=== PATIENT | female | born 1975 | race Caucasian/White ===

== ENCOUNTER 2018-09-18 20:08 | Inpatient (IN) ==
--- NOTE | 2018-09-18 16:32 | OB/GYN History & Physical ---
Date of Encounter: 09/18/18 Time of Encounter: 16:30 Assessment and Plan (1) False labor after 37 completed weeks of gestation Current visit: Yes Status: Acute 43yo at 38+3wks GA who presents with lower back discomfort, rule out labor 1. R/o labor - R&R NST - SVE: cl/th/hi, posterior - no contraction(S) on EFM, patient denies - MUS like discomfort associated with the LL flank - denies si/sx of UTI, no hematuria or dysuria - urine dip ordered and pending, if positive will rx 2. MWB - UTD PNC with Dr. Quiñonez - scheduled for repeat LTCS on 09/22 in [place] - complicated by AMA status - G1 NRFWB, G2 elective repeat CS 3. FWB - RNST for GA - reports good FM - posterior fundal placenta - subjectively normal JAZMYNE Dispo: Discomfort improved without any intervention other than time. MUS in origin given examination. Ruled out for LABOR, no CTX and patient with R&R NST for GA. Patient to f/u with Dr. Quiñonez on Sunday for scheduled CS. Given precaution(s). MD URBAN History of Present Illness Chief complaint: LLQ pain HPI: Ms. Reyna is a 43 year old female at 38+3wks GA with 2 prior LTCS presenting with c/o sudden onset left lower flank pain that radiates to the R groin. The patient is otherwise UTD, sees Dr. Quiñonez for PNC for which she is UTD and otherwise uncomplicated aside from AMA status. She is scheduled for rLTCS at term on Saturday 09/22. Denies caren contraction(S), vaginal bleeding, leaking of fluid. Reports excellent movement. Obstetrical History - Pregnancies : 3 Para: 2 Term: 2 : 0 Ab's: 0 Livin - History/Complications History/Complications: First delivery was for abruption Medications and Allergies Ferrous Sulfate 09/18/18 [History] Tablet 09/18/18 [History] Allergy/AdvReac Type Severity Reaction Status Date / Time No Known Allergies Allergy Verified 09/18/18 16:36 Review of System OB All systems PM: reviewed and no additional remarkable complaints except as stated Exam - Vital Signs Vital signs: VSS normotensive non-tachycardic Abdominal: gravid, nonTTP on abdomen MUS: L flank discomfort at PSIS, reproducible with palpation. SVE: cl/th/hi, posterior TAUS performed: placenta: posterior fundal SVE: cl/th/hi - Constitutional Constitutional: well developed, well nourished, mild distress - HEENT HEENT: Mucus Membranes Moist - Lungs Respiratory exam: CTAB - Cardiovascular Cardiovascular exam: RRR - Abdomen Abdomen: Present: gravid - Extremities Extremities exam: normal inspection Results All other labs normal.
[2018-09-18 17:34] LABS: Bilirubin,Urine Negative (Negative); Blood,Urine Negative (Negative); Clarity,Urine Clear (Clear); Color,Urine Yellow (Yellow); Glucose,Urine (UA) Normal (Normal); Ketones,Urine Negative (Negative); Leukocyte Esterase,Urine Negative (Negative); Nitrite,Urine Negative (Negative); PH,Urine 6.5 pH Units (5.0-8.0); Protein,Urine Negative (Neg-Trace); Specific Gravity,Urine 1.018 (1.010-1.025); Urobilinogen,Urine Normal (Normal)
[2018-09-18 17:44] LABS: Amphetamine Screen,Urine Negative ng/mL (Cutoff=1000); Barbiturate Screen,Urine Negative ng/mL (Cutoff=200); Benzodiazepines Screen,Urine Negative ng/mL (Cutoff=200); Cannabinoid Screen,Urine Negative ng/mL (Cutoff = 50); Cocaine Screen,Urine Negative ng/mL (Cutoff= 300); Opiate Screen,Urine Negative ng/mL (Cutoff=300); Phencyclidine Screen,Urine Negative ng/mL (Cutoff=25)
[2018-09-18] MEDS: Ringers Solution, Lactated 1,000 ML IVC ONE ×2 (18:39→19:43)
[2018-09-18 19:03] LABS: Basophils % 0.3 %; Eosinophils # 0.2 K/mcL (0.0-0.6); Eosinophils % 1.6 %; Hemoglobin 11.9 g/dL (11.5-15.4); Immature Granulocytes % 0.9 % (0-4); Lymphocytes # 1.6 K/mcL (0.6-4.6); Lymphocytes % 13.8 %; Mean Corpuscular HGB Conc 33.1 g/dL (31.6-35.5); Mean Corpuscular Hemoglobin 28.8 pg (28.0-33.3); Mean Corpuscular Volume 87.2 fL (83.0-100.0); Mean Platelet Volume 11.5 fL (9.4-12.4); Monocytes # 0.9 K/mcL (0.0-1.3); Monocytes % 8.1 %; Neutrophils # 8.7 K/mcL (1.6-8.9); Platelet Count 143 K/mcL (140-400); Red Blood Count 4.13 M/mcL (3.82-4.97); Red Cell Distribution Width 13.4 % (11.5-14.5); Segmented Neutrophils % 75.3 %
--- NOTE | 2018-09-18 19:36 | Event Note ---
Date of Encounter: 09/18/18 Time of Encounter: 19:25 1830 43yo at 38+4wks GA reported increased discomfort when being discharged from triage. No vaginal bleeding, no contraction(S) or leaking of fluid. Excellent movement. Patient is still reporting more intense lower L flank discomfort and L mid quadrant discomfort. Patient was kept for increased monitoring, IVF bolus, and tylenol. After ~45min, the patient reported no relief with po tylenol. While patient has been in triage and on EFM, isolated contraction(S) appreciated but appropriate for a multiparous patient. No regular contraction(S), otherwise toco is quiet. Reactive and reassuring NST. No signs consistent with placental abruption OR uterine rupture. 1930 Patient reports to be feeling increased lower pelvic pressure and pain. Of note, when checked at initial presentation, she was cl/th/hi and posterior. station was low. Nabothian cyst palpable on cervix. Patient was rechecked at this time and found to be the same, cl/th/hi cervix. Rx was signed for 10mg of po flexiril. Will continue to keep patient on CEFM for full 3 hour period. Should NST remain reactive and without contraction(s) consistent with labor - we can offer to keep patient overnight for observation with plans to discharge patient in AM pending maternal and well-being. MD URBAN
[~2018-09-18 20:08] MED LIST: Acetaminophen 325 MG TABLET PO ONE; CeFAZolin Premix DUPLEX 2,000 MG/50 ML BAG IVPB ONE; Famotidine 20 MG/2 ML VIAL IVP ONE; Metoclopramide 10 MG/2 ML VIAL IVP ONE; Ringers Solution, Lactated 1,000 ML ONE
[2018-09-18] MEDS ORDERED: Ringers Solution, Lactated 1,000 ML IVC SCH ×2 (20:15→22:45)
--- NOTE | 2018-09-18 20:15 | Event Note ---
Date of Encounter: 09/18/18 Time of Encounter: 20:15 At bedside to evaluate patient, as her toco as significantly changed with q3- 4min contraction(s) that are regular. Patient appreciates the contraction(s) as this discomfort is separate from the LLQ discomfort she has been feeling. Given patient is a 43yo at 38+4wks GA with hx of two prior FTLTCS, the plan at this time is for delivery. FHT is reactive and reassuring however with contraction(S) on a uterine scar, the recommendation at this time is for delivery. Consent was signed with the patient for repeat delivery as all risks were discussed with the patient. She denies hx of complication(S) during prior CD. Requesting records from Dr. Quiñonez's office at this time. Type and cross was sent with plans for 2U RBC on hold given prior CD x2. Anesthesia was contacted and plans were made to progress toward CD. MD URBAN
[2018-09-18] MEDS ORDERED: Oxytocin 20 units/ LR 1000 mL 20 UNIT/1,000 ML BAG IVC ONE (20:42)
[2018-09-18] MEDS ORDERED: Oxytocin 20 units/ LR 1000 mL 20 UNIT/1,000 ML BAG IVC SCH (20:45)
--- NOTE | 2018-09-18 21:30 | Anesthesia Evaluation PreOp ---
Date of Encounter: 09/18/18 Time of Encounter: 21:27 - Past History Planned Operation: Repeat Csection/spinal anesthesia Cardiac History: Denies any Significant Hx Pulmonary History: Denies Any Significant HX OUTSIDE MACHINIST HELPER History: Denies Any Significant HX Other Medical History: GERD, Other (Subplacental partial abruption 1st 8 weeks of this with mild spotting noted.) Anesthesia History: No Prior Anesthetic Complications, Past Anesthesia (Previous csection x 2, T&A without anesthesia complication.) : Yes Alcohol Use: none Drug use: none Medications and Allergies Ferrous Sulfate 09/18/18 [History] Tablet 09/18/18 [History] Allergy/AdvReac Type Severity Reaction Status Date / Time No Known Allergies Allergy Verified 09/18/18 16:36 - Meds/Allergy Pre-op Review Medications Reviewed: Yes Allergies Reviewed: Yes Beta Blockers on Current Med List: No Anesthesia Results - Labs 09/18/18 18:35 Anesthesia Exam T 98.0 BP 103/58 P 81 R 14 Height: 5'3" Weight: 72.5kg NPO (# of Hours): 9 Pain Scale: 3 Pain Scale Used: Numeric (1 - 10) - HEENT Pupil (Motor): Pupils equal Mallampati: II Teeth: Normal Oral Opening: Greater than 3 - OUTSIDE MACHINIST HELPER LOC: Oriented OUTSIDE MACHINIST HELPER Motor: Normal RUE, Normal LUE, Normal RLE, Normal LLE, Normal Face OUTSIDE MACHINIST HELPER Sensory: Normal: RUE, LUE, RLE, LLE, Face - Cardiac Rhythm: Regular Murmur: None JVD: No Carotid Bruit: No - Pulmonary Breath Sounds: bilateral Clear Respiratory Effort: Symmetrical Anesthesia Assess/Plan ASA Score: 2 Modified Yumiko Scale for Level of Consciousness: Cooperative, oriented, and tranquil Anesthetic Plan: Regional Autologous Blood: Yes Monitoring Plan: Standard Monitors Recovery Plan: PACU
[2018-09-18] MEDS ORDERED: Bupivacaine/PF 0.75% in Dex 2 ML AMPUL INFILT ONE (21:35)
[2018-09-18] MEDS ORDERED: *HR* Morphine Sulfate/PF 10 MG/10 ML AMPUL ONE (21:36)
[2018-09-18] MEDS ORDERED: *HR* Phenylephrine 10 MG/ML VIAL ONE (21:54)
[2018-09-18] MEDS ORDERED: Ondansetron 4 MG/2 ML VIAL ONE (21:54)
[2018-09-18] MEDS ORDERED: Dexamethasone 4 MG/ML VIAL ONE (21:54)
[2018-09-18] MEDS ORDERED: EPHEDrine 50 MG/ML VIAL ONE (21:55)
--- NOTE | 2018-09-18 22:13 | Anesthesia Procedures ---
Date of Encounter: 09/18/18 Time of Encounter: 21:53 Procedures: Anesthesia - Epidural/Spinal Patient ID/Chart reviewed: Yes Patient examined: Yes OB Eval: Gestational age: 40 OB Eval: : 3 OB Eval: Hx Para: 2 OB Eval: Contractions: Non-stressed pattern Consent Obtained: Yes Supplemental Oxygen: None/Room Air Site Prep: Aseptic Technique, Sterile prep and drape, Povidone-Iodine 1% Patient position: upright Local Anesthetic: Lidocaine 1% Amount of Local Anesthetic used: 3 Interspace Used: L3-L4 Loss of Resistance (EMILIA): No Blood: No CSF: Yes Paresthesia: No Spinal Needle Gauge: 25 Spinal Dose: Bupivicaine 0.75% 1.6ml Morphine 300mcg Procedure: Intrathecal dose administered 1st pass in upright position without any immediate noted complications. VSS and FHT stable throughout. Vitals + FHT's: See anesthesia record
[2018-09-18] MEDS ORDERED: *HR* Oxytocin 10 UNIT/ML VIAL IM ONE ×2 (22:19→23:08)
[2018-09-18] MEDS ORDERED: Ondansetron 4 MG/2 ML VIAL IVP ONE (22:32)
[2018-09-18] MEDS ORDERED: *HR* HYDROmorphone (PF) 1 MG/ML SYRINGE IVP PRN (22:32)
[2018-09-18] MEDS ORDERED: *HR* Meperidine 50 MG/ML SYRINGE IVP PRN (22:32)
[2018-09-18] MEDS ORDERED: Acetaminophen IV 1,000 MG/100 ML INFUS..BTL IVPB ONE (22:32)
[2018-09-18] MEDS ORDERED: *HR* Promethazine 25 MG/ML VIAL IVP PRN (22:32)
[2018-09-18] MEDS ORDERED: *HR* OxyCODONE Immed Rel 5 MG TABLET PO PRN (22:32)
[2018-09-18] MEDS ORDERED: Ringers Solution, Lactated 2,000 ML ONE (23:08)
--- NOTE | 2018-09-18 23:51 | OB/GYN Procedure Note ---
Section - Date of procedure: 09/18/18 Preop diagnosis: desires repeat Post-op diagnosis: same Procedure: section, repeat low transverse Surgeon: Anna Morse Blood Loss: 400 Was there an assistant professor of biology present: No Anesthesiologist: Ana Lilia Cox Anesthesia Type: None section complications: uterine atony Disposition: Post floor Specimens: Placenta, Cord segment, Cord blood - (s) A Infant Delivery Date: 09/18/18 Infant Delivery Time: 22:22 Presentation: vertex Pounds: 7 Ounces: 5 at 1 minute: 9 at 5 minutes: 9 - Narrative Narrative: Patient was prepped and draped in the usual fashion. Spinal anesthesia was found to be adequate. Appropriate signout was performed with patient affirmation of introduction. A scapel was used to make a pfannenstiel skin incision and carry it down to the level of the fascia. Using curved mayos and pick ups with teeth, we extended the fascial incision laterally on both sides. Rolan clamps were then placed on the anterior/superior lip of the fascia and the rectofasical plane was made. This was also performed on the inferior lip of the rectofascial plane. Hemostats were then used to dissect the midline of the rectus muscles bluntly, and then the abdomen was entered with manual traction. No uterofascial adhesions were noted at the uterine fundus and upon entry into the peritoneum. Using equal and opposite counter traction, the rectus muscles were down the midline and the lower uterine segment was grossly visualized. There were mild vesicouterine adhesion(s) appreciated that were taken down easily to form a bladder flap. The bladder blade was then replaced and the lower uterine segment was visualized. NO UTERINE WINDOW WAS APPRECIATED, however the lower uterine segment was thinning and the scar was grossly deformed. A low-transverse uterine incision was made above the reflection of bladder. This was bluntly inferiorly and superiorly. Amniotic sac was intact with clear appearing fluid in bag. Baby was in the vertex position and the head was brought to the level of the uterine incision. Amniotomy was performed and the fluid was clear. With appropriate fundal pressure, the head was delivered. A loose nuchal cord was appreciated and appropriately reduced. The remainder of the was delivered atraumatically. Baby was vigorous and crying. 60-second cord delay was performed. Cord blood was collected, as well as a cord segment. Placenta was manually extracted with little difficulty. Placenta was NOT sent to pathology. Uterus was then exteriorized and the clots and debris was cleared. The hysterotomy was then closed in a running, locked fashion. The uterine incision was still with a steady ooze, at which point we imbrication incision for homeostasis. There was a small area at the midline. Despite multiple attempts, the area of sinus kept bleeding. Using 2-0 chromic, two simple stitches were placed and hemostasis was appreciated. Uterine incision was found to be hemostatic prior to and after replacement of the uterus in the abdomen. Fascial incision was closed using barbed 0-PDS. Subcutaneous stitch performed to close space. Subcuticular stitch was then performed. Hemostasis appreciated. Counts correct x3. EBL: 400mL Infant gender: male Infant weight: 3325gm Apgars: 9/9 Placenta delivered spontaneously: 3VC MD URBAN
[2018-09-19] MEDS ORDERED: Ondansetron 4 MG/2 ML VIAL IVP PRN (00:38)
[2018-09-19] MEDS ORDERED: Metoclopramide 10 MG/2 ML VIAL IVP PRN (00:38)
[2018-09-19] MEDS ORDERED: Ringers Solution, Lactated 1,000 ML IVC SCH (00:38)
[2018-09-19] MEDS ORDERED: Acetaminophen 325 MG TABLET PO PRN (00:38)
[2018-09-19] MEDS ORDERED: *HR* OxyCODONE/APAP 5/325 TABLET PO PRN (00:38)
[2018-09-19] MEDS ORDERED: Simethicone 80 MG TAB.CHEW PO PRN (00:38)
[2018-09-19] MEDS ORDERED: Oxytocin 20 units/ LR 1000 mL 20 UNIT/1,000 ML BAG IVC SCH ×2 (00:38)
[2018-09-19] MEDS ORDERED: Sennosides 8.6 MG TABLET PO PRN (00:38)
[2018-09-19] MEDS: Ibuprofen 600 MG TABLET PO PRN ×3 (01:17→16:07)
--- NOTE | 2018-09-19 02:39 | Anesthesia Evaluation Post Op ---
Date of Encounter: 09/19/18 Time of Encounter: 01:00 - Vital Signs Vital Signs: Vital Signs Temperature 98 F 09/19/18 02:00 Pulse Rate 89 09/19/18 02:00 Respiratory Rate 16 09/19/18 02:00 Blood Pressure 112/63 09/19/18 02:00 O2 Sat by Pulse Oximetry 97 09/19/18 02:00 Temperature 98 F 09/19/18 02:00 Pulse Rate 89 09/19/18 02:00 Respiratory Rate 16 09/19/18 02:00 Blood Pressure 112/63 09/19/18 02:00 O2 Sat by Pulse Oximetry 97 09/19/18 02:00 - Lungs Lungs: Clear Ascult./Percussion - Airway Airway: Non-obstructed - Cardiovascular Regular Rate - Mental Status Mental Status: Alert & Oriented, Answers Appropriately - Pain Pain Scale: 0 Pain Scale used: Numeric (1 - 10) - Nausea Vomiting Nausea Vomiting: Not Present - Hydration Hydration: Ice chips, Aparicio catheter - Discharge PostOp Status: Transfer Patient to floor
[2018-09-19 07:33] LABS: Basophils % 0.1 %; Hematocrit 30.7 % (35.3-44.9); Immature Granulocytes % 0.7 % (0-4); Lymphocytes % 4.5 %; Mean Corpuscular HGB Conc 33.2 g/dL (31.6-35.5); Mean Corpuscular Hemoglobin 29.2 pg (28.0-33.3); Mean Platelet Volume 11.3 fL (9.4-12.4); Monocytes # 1.5 K/mcL (0.0-1.3); Monocytes % 7.2 %; Neutrophils # 18.7 K/mcL (1.6-8.9); Platelet Count 143 K/mcL (140-400); Red Blood Count 3.49 M/mcL (3.82-4.97); Red Cell Distribution Width 13.5 % (11.5-14.5); Segmented Neutrophils % 87.5 %
[2018-09-19 07:47] LABS: Hemoglobin 10.2 g/dL (11.5-15.4)
[2018-09-19] MEDS: Prenatal Vit/FA 1 EACH TABLET PO SCH (08:06)
--- NOTE | 2018-09-19 10:58 | OB/GYN Progress Note ---
Date of Encounter: 09/19/18 Time of Encounter: 10:55 - Assessment and Plan (1) Status post repeat low transverse section Current Visit: Yes Status: Acute Meeting all day 1 milestones Continue routine care Anticipate discharge home tomorrow (2) anemia Current Visit: Yes Status: Acute Plan to continue iron by mouth (3) Breast feeding status of mother Current Visit: Yes Status: Acute consult when necessary Subjective - Subjective Principal diagnosis: s/p RLTCS Interval history: Feeling well. Out of bed without dizziness. Some abdominal discomfort-using binder. Some incisional pain-alternating ibuprofen and Tylenol at this time. Voiding independently. Ambulating independently. Lochia light. Patient reports: appetite normal, voiding normally, pain well controlled, ambulating normally : doing well, nursing well Objective - Vital Signs Latest vital signs: Vital Signs Temp Pulse Resp BP Pulse Ox 09/19/18 08:42 97.9 F 82 18 108/69 96 09/19/18 07:30 97.5 F L 95 14 97/64 95 09/19/18 05:00 98.1 F 90 16 102/68 96 09/19/18 04:00 98.2 F 88 16 112/72 96 09/19/18 03:00 98.1 F 89 16 109/68 98 09/19/18 02:30 98.1 F 89 18 116/69 98 09/19/18 02:00 98 F 89 16 112/63 97 Intake and Output 09/18/18 09/19/18 09/19/18 23:59 07:59 15:59 Intake Total 1000 / 1000 600 / 600 520 / 520 Output Total 500 / 500 Balance 1000 / 1000 100 / 100 520 / 520 Intake: IV Fluids 1000 / 1000 Lactated Ringers 1,000 ML @ 999 1000 / 1000 mls/hr IVC .Q1H1M ONE Rx#: [id number] Oral 600 / 600 520 / 520 Output: Catheter 500 / 500 Other: Weight 72.575 kg - Exam Lungs: bilateral: normal Chest: Normal S1, Normal S2 Extremities: Present: normal Abdomen: Present: normal appearance, soft Incision: Present: normal, dry, dressed Uterus: Present: normal, firm Fundal Height: 1 (Below and midline) - Labs Labs: Laboratory Results - last 24 hr 09/18/18 09/18/18 09/18/18 17:25 17:25 18:35 WBC 11.6 H RBC 4.13 Hgb 11.9 Hct 36.0 MCV 87.2 MCH 28.8 MCHC 33.1 RDW 13.4 Plt Count 143 MPV 11.5 Immature Gran % 0.9 Seg Neutrophils % 75.3 Lymphocytes % 13.8 Monocytes % 8.1 Eosinophils % 1.6 Basophils % 0.3 Neutrophils # 8.7 Lymphocytes # 1.6 Monocytes # 0.9 Eosinophils # 0.2 Basophils # 0.0 Urine Color Yellow Urine Clarity Clear Urine pH 6.5 Ur Specific [place] 1.018 Urine Protein Negative Urine Glucose (UA) Normal Urine Ketones Negative Urine Blood Negative Urine Nitrite Negative Urine Bilirubin Negative Urine Urobilinogen Normal Ur Leukocyte Esterase Negative Ur Culture Indicated? NO Urine Opiates Screen Negative Ur Barbiturates Screen Negative Ur Phencyclidine Scrn Negative Ur Amphetamines Screen Negative U Benzodiazepines Scrn Negative Urine Cocaine Screen Negative U Marijuana (THC) Screen Negative Ur Drug Screen Interp See Below Blood Type Antibody Screen Crossmatch 09/18/18 09/19/18 18:35 07:14 WBC 21.4 H D RBC 3.49 L Hgb 10.2 L D Hct 30.7 L MCV 88.0 MCH 29.2 MCHC 33.2 RDW 13.5 Plt Count 143 MPV 11.3 Immature Gran % 0.7 Seg Neutrophils % 87.5 Lymphocytes % 4.5 Monocytes % 7.2 Eosinophils % 0.0 Basophils % 0.1 Neutrophils # 18.7 H Lymphocytes # 1.0 Monocytes # 1.5 H Eosinophils # 0.0 Basophils # 0.0 Urine Color Urine Clarity Urine pH Ur Specific [place] Urine Protein Urine Glucose (UA) Urine Ketones Urine Blood Urine Nitrite Urine Bilirubin Urine Urobilinogen Ur Leukocyte Esterase Ur Culture Indicated? Urine Opiates Screen Ur Barbiturates Screen Ur Phencyclidine Scrn Ur Amphetamines Screen U Benzodiazepines Scrn Urine Cocaine Screen U Marijuana (THC) Screen Ur Drug Screen Interp Blood Type B POSITIVE Antibody Screen NEGATIVE Crossmatch See Detail
[2018-09-19] MEDS: Acetaminophen 325 MG TABLET PO PRN ×2 (13:01→20:45)
[2018-09-20] MEDS: Ibuprofen 600 MG TABLET PO PRN ×2 (05:11→14:39)
--- NOTE | 2018-09-20 08:42 | Discharge Summary ---
Date of Encounter: 09/20/18 Time of Encounter: 08:40 - Discharge Diagnosis (1) Status post repeat low transverse section Priority: Primary Status: Acute Comments: S/P repeat day 2 VSS Pain well controlled Lochia light and without clots Voiding without difficulty Tolerating regular diet and passing flatus Breast feeding without difficulty Discharge home today (2) anemia Priority: Secondary Status: Acute Comments: VSS, denies tachypnea, tachycardia, dyspnea, feeling dizzy/faint with standing - Discharge Medications Prescriptions: Ibuprofen [Motrin] 600 mg PO Q6HR PRN #30 tablet PRN Reason: Cramping Breast Pump [BREAST PUMP] 1 each .ROUTE AD #1 each Docusate [Colace] 100 mg PO BID #30 capsule Ferrous Sulfate 325 mg PO DAILY #90 tablet OxyCODONE/APAP 5/325 [Percocet 5/325 MG] 1 each PO Q6H PRN 5 Days #20 tablet PRN Reason: Moderate pain 4-6 Home Medications: Tablet 1 tab PO DAILY 09/18/18 [History] Acetaminophen [Tylenol] 650 mg PO Q6HR PRN tablet 09/20/18 [Rx] Breast Pump [BREAST PUMP] 1 each .ROUTE AD #1 each 09/20/18 [Rx] Docusate [Colace] 100 mg PO BID #30 capsule 09/20/18 [Rx] Ferrous Sulfate 325 mg PO DAILY #90 tablet 09/20/18 [Rx] Ibuprofen [Motrin] 600 mg PO Q6HR PRN #30 tablet 09/20/18 [Rx] OxyCODONE/APAP 5/325 [Percocet 5/325 MG] 1 each PO Q6H PRN 5 Days #20 tablet 09/20/18 [Rx] Simethicone [Gas-X] 80 mg PO TID PRN tab.chew 09/20/18 [Rx] Allergies/Adverse Reactions: Allergy/AdvReac Type Severity Reaction Status Date / Time No Known Allergies Allergy Verified 09/18/18 16:36 Data Procedures and tests throughout hospitalization: Laboratory Tests 09/18/18 09/18/18 09/18/18 17:25 17:25 18:35 WBC 11.6 H RBC 4.13 Hgb 11.9 Hct 36.0 MCV 87.2 MCH 28.8 MCHC 33.1 RDW 13.4 Plt Count 143 MPV 11.5 Immature Gran % 0.9 Seg Neutrophils % 75.3 Lymphocytes % 13.8 Monocytes % 8.1 Eosinophils % 1.6 Basophils % 0.3 Neutrophils # 8.7 Lymphocytes # 1.6 Monocytes # 0.9 Eosinophils # 0.2 Basophils # 0.0 Urine Color Yellow Urine Clarity Clear Urine pH 6.5 Ur Specific [place] 1.018 Urine Protein Negative Urine Glucose (UA) Normal Urine Ketones Negative Urine Blood Negative Urine Nitrite Negative Urine Bilirubin Negative Urine Urobilinogen Normal Ur Leukocyte Esterase Negative Ur Culture Indicated? NO Urine Opiates Screen Negative Ur Barbiturates Screen Negative Ur Phencyclidine Scrn Negative Ur Amphetamines Screen Negative U Benzodiazepines Scrn Negative Urine Cocaine Screen Negative U Marijuana (THC) Screen Negative Ur Drug Screen Interp See Below Blood Type Antibody Screen Crossmatch 09/18/18 09/19/18 18:35 07:14 WBC 21.4 H D RBC 3.49 L Hgb 10.2 L D Hct 30.7 L MCV 88.0 MCH 29.2 MCHC 33.2 RDW 13.5 Plt Count 143 MPV 11.3 Immature Gran % 0.7 Seg Neutrophils % 87.5 Lymphocytes % 4.5 Monocytes % 7.2 Eosinophils % 0.0 Basophils % 0.1 Neutrophils # 18.7 H Lymphocytes # 1.0 Monocytes # 1.5 H Eosinophils # 0.0 Basophils # 0.0 Urine Color Urine Clarity Urine pH Ur Specific [place] Urine Protein Urine Glucose (UA) Urine Ketones Urine Blood Urine Nitrite Urine Bilirubin Urine Urobilinogen Ur Leukocyte Esterase Ur Culture Indicated? Urine Opiates Screen Ur Barbiturates Screen Ur Phencyclidine Scrn Ur Amphetamines Screen U Benzodiazepines Scrn Urine Cocaine Screen U Marijuana (THC) Screen Ur Drug Screen Interp Blood Type B POSITIVE Antibody Screen NEGATIVE Crossmatch See Detail Date of admission: 09/18/18 20:08 Primary care physician: PCP NONE Discharging clinician: Anna Shafer Anticipated date of discharge: 09/20/18 - Patient Status Disposition: Home, Self-Care Condition: Good Functional capacity at discharge: independent ambulation Overall status at discharge: patient is progressing back to baseline - Discharge Instructions Follow Up With: NONE,PCP [Primary Care Provider] - Vince Quiñonez MD [Non-Partnered Physician] - (Follow up within 2 weeks) Additional Instructions: LABOR AND DELIVERY DISCHARGE INSTRUCTIONS Signs and Symptoms to be Reported to your Doctor Immediately: * Sudden gush, continuous or intermittent lead of fluid from vagina (note the time of gush and color of fluid) * Onset of bright red vaginal bleeding with or without pain (if you had a vaginal exam during this visit you may notice some dark red spotting. This is normal.) * Contractions that are 5 minutes apart (from the beginning of one contraction to the beginning of the next) and last 45-60 seonds; contractions that you can no longer walk, talk or laugh through. * A change in the baby's activity. This could be an increase or decrease in activity. * Severe headache which does not go away with tylenol. * Sudden swelling in the face, hands, arms and/or legs. * Upper abdominal pain - sometimes associated with heartburn or nausea and is not relieved by Maalox, Mylanta or Tums. * Kick Counts __ One hour after a meal, lay down on one side in a quiet place. Count the number of time the baby moves during an hour. If less than 6 movements, notify your physician Diet: *Force fluids, 8 to 10 tall glasses of fluid per day - may include popsicles and jello *Limit caffeine - this includes chocolate, coffee, tea, any soft drink containing such as all chato, Alexei Yellow and Mountain Dew - Diet and Activity Activity: increase activity as tolerated Diet: regular diet Hospital Course Reason for admission: rupture of membranes, IUP at term Delivery: section Episiotomy: none Laceration: none Other procedures: none complications: none Discharge diagnosis: IUP at term delivered baby: male Time Attestation: Total time spent providing and/or coordinating discharge services: Time Spent: Less than 30 minutes - VTE Reasons for not Prescribing Prophylaxis: Treatment not Indicated - Low risk for VTE Documentation of Mechanical Device: Intermittent pneumatic compression device Exam - Constitutional Vitals: Temp Pulse Resp BP Pulse Ox 97.7 F 80 14 96/90 97 09/19/18 22:00 09/19/18 22:00 09/19/18 22:00 09/19/18 22:00 09/19/18 22:00 General appearance IM: cooperative, A&O X 3, pleasant - Respiratory Respiratory exam: Present: CTAB - Cardiovascular Cardiovascular exam IM: Present: RRR, +S1, +S2 - GI/Abdominal GI/Abdominal exam IM: normal bowel sounds Incision: normal, dry, intact - Uterine Tone: Firm Uterus Position: At Umbilicus, Midline - Extremities Exam Extremities exam IM: Present: normal capillary refill, normal inspection, radial pulses palpable and symmetrical - Neurological Exam Neurological exam: alert, oriented X3
[2018-09-20 09:02] VITALS: BP 99/64
[2018-09-20] MEDS: Prenatal Vit/FA 1 EACH TABLET PO SCH (09:20)
[2018-09-20] MEDS: Acetaminophen 325 MG TABLET PO PRN (09:31)
[2018-09-20] MEDS ORDERED: Lidocaine/EPI 1:100k 1% 20 ML VIAL INFILT ONE (09:38)
[2018-09-20] MEDS ORDERED: Etonogestrel 68 MG IMPLANT IL ONE (09:38)
== END 2018-09-20 16:15 | disposition home or self-care (01) | DRG 788 ==
LOC: 1NENULAB → 1NENUOBS 09-19 02:13
PROVIDERS: ADMIT Registered Nurse; ATTEND Registered Nurse

== ENCOUNTER 2020-06-07 05:45 | Inpatient (IN) ==
[2020-06-07] MEDS ORDERED: CeFAZolin 2,000 MG/50 ML BAG IVPB ONE (06:20)
[2020-06-07] MEDS ORDERED: Famotidine 20 MG/2 ML VIAL IVP ONE (06:20)
[2020-06-07] MEDS ORDERED: Metoclopramide 10 MG/2 ML VIAL IVP ONE (06:20)
[2020-06-07] MEDS ORDERED: Ringers Solution, Lactated 1,000 ML IVC ONE (06:20)
[2020-06-07 07:00] LABS: Basophils % 0.3 %; Eosinophils # 0.3 K/mcL (0.0-0.6); Eosinophils % 2.4 %; Hematocrit 35.4 % (35.3-44.9); Hemoglobin 11.3 g/dL (11.5-15.4); Immature Granulocytes % 0.9 % (0-4); Lymphocytes # 1.8 K/mcL (0.6-4.6); Lymphocytes % 15.6 %; Mean Corpuscular HGB Conc 31.9 g/dL (31.6-35.5); Mean Corpuscular Hemoglobin 27.3 pg (28.0-33.3); Mean Corpuscular Volume 85.5 fL (83.0-100.0); Mean Platelet Volume 11.3 fL (9.4-12.4); Monocytes # 0.9 K/mcL (0.0-1.3); Monocytes % 8.1 %; Neutrophils # 8.4 K/mcL (1.6-8.9); Platelet Count 180 K/mcL (140-400); Red Blood Count 4.14 M/mcL (3.82-4.97); Red Cell Distribution Width 12.5 % (11.5-14.5); Segmented Neutrophils % 72.7 %; White Blood Count 11.6 K/mcL (4.3-11.1)
[2020-06-07] MEDS ORDERED: *HR* Morphine Sulfate/PF 10 MG/10 ML AMPUL ONE (07:07)
[2020-06-07] MEDS ORDERED: *HR* Oxytocin 10 UNIT/ML VIAL IM ONE ×2 (07:07→08:24)
[2020-06-07] MEDS ORDERED: *HR* FentaNYL (PF) 100 MCG/2 ML VIAL ONE (07:07)
[2020-06-07] MEDS ORDERED: Ringers Solution, Lactated 1,000 ML ONE ×2 (07:21→08:19)
[2020-06-07] MEDS ORDERED: *HR* HYDROmorphone (PF) 1 MG/ML SYRINGE IVP PRN (08:32)
[2020-06-07] MEDS ORDERED: Ondansetron 4 MG/2 ML VIAL IVP PRN ×2 (08:32→11:28)
[2020-06-07] MEDS ORDERED: Acetaminophen IV 1,000 MG/100 ML BAG IVPB ONE (08:32)
[2020-06-07 08:34] LABS: Amphetamine Screen,Urine Negative ng/mL (Cutoff=1000); Barbiturate Screen,Urine Negative ng/mL (Cutoff=200); Benzodiazepines Screen,Urine Negative ng/mL (Cutoff=200); Cannabinoid Screen,Urine Negative ng/mL (Cutoff = 50); Cocaine Screen,Urine Negative ng/mL (Cutoff= 300); Opiate Screen,Urine Negative ng/mL (Cutoff=300); Phencyclidine Screen,Urine Negative ng/mL (Cutoff=25)
[2020-06-07] MEDS ORDERED: Ondansetron 4 MG/2 ML VIAL ONE (09:02)
[2020-06-07] MEDS ORDERED: Rho Immune Globulin 1,500 UNIT SYRINGE IM ONE (11:28)
[2020-06-07] MEDS ORDERED: Ringers Solution, Lactated 1,000 ML IVC SCH (11:28)
[2020-06-07] MEDS ORDERED: Metoclopramide 10 MG/2 ML VIAL IVP PRN (11:28)
[2020-06-07] MEDS ORDERED: Sennosides 8.6 MG TABLET PO PRN (11:28)
[2020-06-07] MEDS ORDERED: Oxytocin 20 units/ LR 1000 mL 20 UNIT/1,000 ML BAG IVC SCH ×2 (11:28)
[2020-06-07] MEDS ORDERED: *HR* OxyCODONE/APAP 5/325 TABLET PO PRN (11:28)
[2020-06-07] MEDS ORDERED: Simethicone 80 MG TAB.CHEW PO PRN (11:28)
[2020-06-07] MEDS: Ibuprofen 600 MG TABLET PO PRN ×2 (14:59→21:05)
[2020-06-07] MEDS ORDERED: Acetaminophen 325 MG TABLET PO PRN (19:50)
[2020-06-08] MEDS: Ibuprofen 600 MG TABLET PO PRN ×2 (03:49→13:00)
[2020-06-08 05:57] LABS: Basophils % 0.3 %; Eosinophils # 0.2 K/mcL (0.0-0.6); Eosinophils % 1.7 %; Hematocrit 29.4 % (35.3-44.9); Hemoglobin 9.6 g/dL (11.5-15.4); Immature Granulocytes % 0.5 % (0-4); Immature Platelets 6.5 % (1.1-6.1); Lymphocytes # 0.7 K/mcL (0.6-4.6); Lymphocytes % 6.1 %; Mean Corpuscular HGB Conc 32.7 g/dL (31.6-35.5); Mean Corpuscular Hemoglobin 28.2 pg (28.0-33.3); Mean Corpuscular Volume 86.2 fL (83.0-100.0); Mean Platelet Volume 11.2 fL (9.4-12.4); Monocytes # 0.8 K/mcL (0.0-1.3); Monocytes % 6.9 %; Neutrophils # 9.9 K/mcL (1.6-8.9); Platelet Count 128 K/mcL (140-400); Red Blood Count 3.41 M/mcL (3.82-4.97); Red Cell Distribution Width 12.7 % (11.5-14.5); Segmented Neutrophils % 84.5 %; White Blood Count 11.8 K/mcL (4.3-11.1)
[2020-06-08 08:06] VITALS: BP 99/63
[2020-06-08] MEDS ORDERED: Prenatal Vit/FA 1 EACH TABLET PO SCH (09:00)
== END 2020-06-08 15:00 | disposition home or self-care (01) | DRG 785 ==
LOC: 1NENULAB 06:06 → 1NENUOBS 11:20
PROVIDERS: ADMIT Student in an Organized Health Care Education/Training Program; ATTEND Student in an Organized Health Care Education/Training Program